=== PATIENT | male | born 2000 | race Caucasian/White ===

== ENCOUNTER 2020-01-28 18:27 | Emergency (ER) | payer SELFPAY ==
[~2020-01-28] VITALS: Ht 170.2 cm; Wt 54.4 kg
[2020-01-28 18:32] VITALS: BP 138/93
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
[2020-01-28 18:51] VITALS: BP 138/93
--- NOTE | 2020-01-28 18:52 | NUR ---
PATIENT BIB [place] [employer]. PATIENT EXAMINED BY DR. Wing. PATIENT MEDICALLY CLEARED AND RELEASED IN CUSTODY IN STABLE CONDITION. ORIGINAL PRE-BOOK FORM GIVEN TO OFFICER Enrique Ktae.
== END 2020-01-28 18:52 ==
LOC: MED 18:27
DX: G43.909 Migraine, unspecified, not intractable, without status migrainosus (principal); Z02.89 Encounter for other administrative examinations
CPT/HCPCS: 99283

== ENCOUNTER 2024-04-25 20:30 | Emergency (ER) | payer SELFPAY ==
[~2024-04-25] VITALS: Ht 167.6 cm; Wt 68.0 kg
[2024-04-25 20:30] VITALS: BP 133/85; PULSE 79; RESP 16; TEMP 97.3; O2SAT 100
[2024-04-25 20:37] VITALS: TEMP 97.3
[2024-04-25 20:43] VITALS: O2SAT 98
[2024-04-25 23:34] VITALS: BP 102/60; PULSE 80; RESP 16; O2SAT 98
[2024-04-26 01:32] LABS: AMPHETAMINE, URINE POSITIVE ng/ml (NEG <=1000); BARBITURATE, URINE NEGATIVE ng/ml (NEG <=200); BENZODIAZEPINE, URINE NEGATIVE ng/mL (NEG <=200); CANNABINOID, URINE NEGATIVE ng/mL (NEG <=50); COCAINE, URINE NEGATIVE ng/mL (NEG <=300); OPIATE, URINE NEGATIVE ng/mL (NEG <=2000); PHENCYCLIDINE SCREEN,URINE NEGATIVE ng/mL (NEG <=25)
== END 2024-04-26 01:23 | disposition home or self-care (01) ==
LOC: MED 20:30
DX: T43.621A Poisoning by amphetamines, accidental (unintentional), initial encounter (principal); Y92.89 Other specified places as the place of occurrence of the external cause
CPT/HCPCS: 80305; 99283